=== PATIENT | female | born 1985 | race Caucasian/White ===

== ENCOUNTER → 2021-02-28 | Outpatient (CLI) | payer BC ==
[~2021-02-28] MED LIST: COLACE100 MG PO; CYCLOBENZAPRINE10 MG PO; HAIR SKIN NAIL1 EACH PO; IBU600 MG PO; IBUPROFEN600 MG PO; LEXAPRO10 MG PO; NORCO 7.5-3251 EACH PO; PERCOCET 10-321 EACH PO
== END ==
LOC: RAD 08:58
DX: M25.551 Pain in right hip (principal)
CPT/HCPCS: 73722; A9577; Q9962

== ENCOUNTER 2021-10-04 11:07 | Emergency (ER) | payer OTHER ==
[2021-10-04] MEDS ORDERED: MOBIC15 MG PO (14:31)
[2021-10-04] MEDS ORDERED: CYCLOBENZAPRINE10 MG PO (14:31)
== END 2021-10-04 14:35 | disposition home or self-care (01) ==
LOC: ER1 11:07
DX: S09.90XA Unspecified injury of head, initial encounter (principal); S16.1XXA Strain of muscle, fascia and tendon at neck level, initial encounter; S29.012A Strain of muscle and tendon of back wall of thorax, initial encounter; S20.214A Contusion of middle front wall of thorax, initial encounter; M25.512 Pain in left shoulder; K21.9 Gastro-esophageal reflux disease without esophagitis; V43.52XA Car driver injured in collision with other type car in traffic accident, initial encounter
CPT/HCPCS: 70450; 71046; 72100; 72125; 73030; 99284

== ENCOUNTER 2021-10-15 10:28 | Emergency (ER) | payer BC ==
[~2021-10-15 10:28] MED LIST changes: +MOBIC15 MG PO
[2021-10-15] MEDS ORDERED: BENADRYL ALLERG25 MG PO (10:48)
== END 2021-10-15 11:32 | disposition home or self-care (01) ==
LOC: ER1 10:28
DX: U07.1 COVID-19 (principal); R21 Rash and other nonspecific skin eruption
CPT/HCPCS: 96374; 99282; J2930

== ENCOUNTER → 2022-05-19 | Emergency (ER) | payer BC ==
[~2022-05-19] MED LIST changes: +BENADRYL ALLERG25 MG PO; +HYDROCODON-ACE1 EAC4 PO
[2022-05-19 14:01] LABS: HEMOGLOBIN 14.7 gm/dl (12.3-15.3); RED BLOOD COUNT 4.88 M/UL (4.00-5.10); WHITE BLOOD COUNT 7.8 K/UL (4.5-11.0)
[2022-05-19 14:33] LABS: BUN/CREATININE RATIO 10 (0-10)
== END | disposition other institution (70) ==
LOC: ER1 12:37
PROVIDERS: Physician Assistant
DX: R10.31 Right lower quadrant pain (principal); N83.8 Other noninflammatory disorders of ovary, fallopian tube and broad ligament; E11.9 Type 2 diabetes mellitus without complications; F17.290 Nicotine dependence, other tobacco product, uncomplicated; Z88.1 Allergy status to other antibiotic agents
CPT/HCPCS: 80053; 81001; 83605; 83690; 85025; 86140; 96361; 96374; 96375; 99284; J1100; J1170; J1885; J2001; J2250; J2405; J2710; J2795; J3010; Q9967

== ENCOUNTER 2022-06-01 09:10 | Emergency (ER) | payer BC ==
[2022-06-01 10:05] LABS: HEMOGLOBIN 14.7 gm/dl (12.3-15.3); RED BLOOD COUNT 4.82 M/UL (4.00-5.10); WHITE BLOOD COUNT 9.3 K/UL (4.5-11.0)
[2022-06-01 10:30] LABS: BUN/CREATININE RATIO 12 (0-10)
[2022-06-01] MEDS ORDERED: METRONIDAZOLE500 MG PO (11:19)
[2022-06-01] MEDS ORDERED: ZOFRAN ODT 4 MG4 MG PO (11:19)
[2022-06-01] MEDS ORDERED: DIFLUCAN150 MG PO (11:19)
[2022-06-01] MEDS ORDERED: CIPRO500 MG PO (11:19)
== END 2022-06-01 11:33 | disposition home or self-care (01) ==
LOC: ER1 09:10
PROVIDERS: Physician Assistant
DX: K51.00 Ulcerative (chronic) pancolitis without complications (principal); Z88.1 Allergy status to other antibiotic agents
CPT/HCPCS: 80053; 85025; 96361; 96374; 99284; J2405; Q9967